=== PATIENT | male | born 1975 | race Caucasian/White ===

== ENCOUNTER 2017-06-29 18:17 | Emergency (ER) | payer OTHER ==
--- NOTE | 2017-06-29 19:00 | ED ---
Psych HPI - General Source: patient, police, RN notes reviewed Mode of arrival: ambulatory Limitations: no limitations <Lucian Shah - Last Filed: 06/29/17 18:58> <Monique Rosenberg - Last Filed: 06/29/17 21:22> <Toby Torres - Last Filed: 06/30/17 03:54> - General Chief Complaint: Psychiatric Symptoms Stated Complaint: Mental Health Time Seen by Provider: 06/29/17 18:46 - History of Present Illness Initial Comments: This a 42-year-old male presents emergency Department with poor and police for psychiatric evaluation. Patient was with fiance and police were called secondary to a disagreement. Patient were was reportedly throwing objects. Patient fever has been erratic. Patient has been drinking alcohol today. He will not answer if he is using any drugs. Patient states is not suicidal or homicidal. Patient is not cooperative limited information given. (Lucina Shah ) - Related Data Previous Rx's Medication Instructions Recorded LORazepam [Ativan] 0.5 mg PO BID #10 tab 03/21/17 Allergies Allergy/AdvReac Type Severity Reaction Status Date / Time No Known Allergies Allergy Verified 06/29/17 18:28 Review of Systems ROS Other: All systems not noted in ROS Statement are negative. <Lucian Shah - Last Filed: 06/29/17 18:58> ROS Other: All systems not noted in ROS Statement are negative. <Monique Rosenberg - Last Filed: 06/29/17 21:22> ROS Other: All systems not noted in ROS Statement are negative. <Toby Torres - Last Filed: 06/30/17 03:54> ROS Statement: Those systems with pertinent positive or pertinent negative responses have been documented in the HPI. Past Medical History Additional Past Medical History / Comment(s): rib fx History of Any Multi-Drug Resistant Organisms: None Reported Additional Past Surgical History / Comment(s): nose surgery Past Psychological History: Anxiety, Bipolar, Depression, Panic Disorder, Schizophrenia Smoking Status: Current every day smoker Past Alcohol Use History: Occasional Past Drug Use History: None Reported <Lucian Shah - Last Filed: 06/29/17 18:58> General Exam Limitations: no limitations General appearance: alert, in no apparent distress Head exam: Present: atraumatic, normocephalic, normal inspection Eye exam: Present: normal appearance, PERRL, EOMI. Absent: scleral icterus, conjunctival injection, periorbital swelling ENT exam: Present: normal exam, normal oropharynx, mucous membranes moist, TM's normal bilaterally, normal external ear exam Neck exam: Present: normal inspection, full ROM. Absent: tenderness, meningismus, lymphadenopathy Respiratory exam: Present: normal lung sounds bilaterally. Absent: respiratory distress, wheezes, rales, rhonchi, stridor Cardiovascular Exam: Present: regular rate, normal rhythm, normal heart sounds. Absent: systolic murmur, diastolic murmur, rubs, gallop, clicks GI/Abdominal exam: Present: soft, normal bowel sounds. Absent: distended, tenderness, guarding, rebound, rigid Skin exam: Present: warm, dry, intact, normal color. Absent: rash <Lucian Shah - Last Filed: 06/29/17 18:58> Course <Lucian Shah - Last Filed: 06/29/17 18:58> <Monique Rosenberg - Last Filed: 06/29/17 21:22> <Toby Torres - Last Filed: 06/30/17 03:54> Vital Signs 06/29/17 06/29/17 18:24 22:40 Temperature 97.8 F Pulse Rate 111 H 93 Respiratory 18 18 Rate Blood Pressure 121/57 115/63 O2 Sat by Pulse 96 97 Oximetry Patient endorsed to Dr. Gonzalez at 2100 (Monique Rosenberg) - Lab Data Lab Results 06/29/17 Range/Units 19:55 Urine Opiates Screen Not Detected (NotDetected) Ur Oxycodone Screen Not Detected (NotDetected) Urine Methadone Screen Not Detected (NotDetected) Ur Propoxyphene Screen Not Detected (NotDetected) Ur Barbiturates Screen Not Detected (NotDetected) U Tricyclic Antidepress Not Detected (NotDetected) Ur Phencyclidine Scrn Not Detected (NotDetected) Ur Amphetamines Screen Not Detected (NotDetected) U Methamphetamines Scrn Not Detected (NotDetected) U Benzodiazepines Scrn Not Detected (NotDetected) Urine Cocaine Screen Not Detected (NotDetected) U Marijuana (THC) Screen Not Detected (NotDetected) Disposition <Lucian Shah - Last Filed: 06/29/17 18:58> <Monique Rosenberg - Last Filed: 06/29/17 21:22> <Toby Torres - Last Filed: 06/30/17 03:54> Clinical Impression: Alcohol intoxication Disposition: HOME SELF-CARE Condition: Good Instructions: Alcohol Intoxication (ED) Referrals: None,Stated [Primary Care Provider] - 1-2 days
[2017-06-29 20:20] LABS: Amphetamine Screen,Urine Not Detected (NotDetected); Barbiturate Screen,Urine Not Detected (NotDetected); Benzodiazepines Screen,Urine Not Detected (NotDetected); Cocaine Screen,Urine Not Detected (NotDetected); Methadone Screen, Urine Not Detected (NotDetected); Opiate Screen,Urine Not Detected (NotDetected); Oxycodone Screen, Urine Not Detected (NotDetected); Phencyclidine Screen,Urine Not Detected (NotDetected); Tricyclic Antidepressant,Urine Not Detected (NotDetected); Urn Cannabinoid Scrn Not Detected (NotDetected)
[2017-06-30 04:10] VITALS: BP 141/62; PULSE 82; RESP 15; TEMP 97.7
== END 2017-06-30 04:10 | disposition home or self-care (01) ==
LOC: EC 18:17
DX: F10.129 Alcohol abuse with intoxication, unspecified (principal); R50.9 Fever, unspecified; F17.200 Nicotine dependence, unspecified, uncomplicated; F41.9 Anxiety disorder, unspecified; F31.9 Bipolar disorder, unspecified; F20.9 Schizophrenia, unspecified; F41.0 Panic disorder [episodic paroxysmal anxiety]
CPT/HCPCS: 80306; 82075; 96372; 99284

== ENCOUNTER → 2017-07-13 | Outpatient (CLI) | payer OTHER ==
[2017-07-13 15:06] LABS: Basophils % (A) 0 %; Eosinophils # (A) 0.2 k/uL (0-0.7); Eosinophils % (A) 1 %; HCT 44.3 % (39.0-53.0); Lymphocytes # (A) 1.7 k/uL (1.0-4.8); Lymphocytes % (A) 15 %; MCH 32.3 pg (25.0-35.0); MCHC 33.8 g/dL (31.0-37.0); MCV 95.7 fL (80.0-100.0); Mean Platelet Volume 7.4; Monocytes # (A) 0.4 k/uL (0-1.0); Monocytes % (A) 4 %; Neutrophils % (A) 79 %; Platelet Count 238 k/uL (150-450); RBC 4.62 m/uL (4.30-5.90); RDW 12.8 % (11.5-15.5); WBC 11.3 k/uL (3.8-10.6)
[2017-07-13 15:16] LABS: ALT 54 U/L (21-72); AST 47 U/L (17-59); Albumin 4.5 g/dL (3.5-5.0); Alkaline Phosphatase 61 U/L (38-126); Bilirubin, Delta 0.2 mg/dL (0.0-0.2); Bilirubin,Unconjugated 0.2 mg/dL (0.0-1.1); Blood Urea Nitrogen 15 mg/dL (9-20); Total Bilirubin 0.4 mg/dL (0.2-1.3)
[2017-07-13 15:21] LABS: Valproic Acid (Depakene) 20.8 ug/mL
[2017-07-13 15:31] LABS: T4, Free (Free Thyroxine) 0.89 ng/dL (0.78-2.19)
== END | disposition home or self-care (01) ==
LOC: LABWHC1 14:31
PROVIDERS: ATTEND Psychiatry & Neurology Psychiatry
DX: Z51.81 Encounter for therapeutic drug level monitoring (principal); Z79.899 Other long term (current) drug therapy
CPT/HCPCS: 36415; 80076; 80164; 82565; 84439; 84443; 84520; 85025